=== PATIENT | female | born 1940 | race Caucasian/White ===

== ENCOUNTER 2022-08-07 09:10 | Day surgery (SDC) | payer MEDICARE ==
[~2022-08-07] VITALS: Ht 160 cm; Wt 58.3 kg
[~2022-08-07 09:10] MED LIST: DIT5T PO; FLUO15CR12
[2022-08-07 09:20] VITALS: BP 166/83
[2022-08-07] MEDS ORDERED: OMEP20CA16 PO (09:28)
[2022-08-07] MEDS ORDERED: KEN0.1O TP (09:28)
[2022-08-07 09:42] VITALS: BP 166/83
[2022-08-07] MEDS ORDERED: LIDOcaine 1% 30ml preserv. free vial SQ STA (09:49)
[2022-08-07 10:15] VITALS: BP_SYST 146; BP_SYST 151; BP_DIAS 74; BP_DIAS 77
[2022-08-07 10:20] VITALS: BP 151/77
[2022-08-07 10:25] VITALS: BP 166/69
[2022-08-07 10:30] VITALS: BP 166/69
== END 2022-08-07 10:37 | disposition home or self-care (01) ==
LOC: SSTAY O 09:10
PROVIDERS: ATTEND Internal Medicine
DX: E04.1 Nontoxic single thyroid nodule (principal); Z79.899 Other long term (current) drug therapy; Z98.890 Other specified postprocedural states
CPT/HCPCS: 10005